=== PATIENT | male | born 1935 | race Caucasian/White ===

== ENCOUNTER → 2018-04-11 | Outpatient (CLI) | payer OTHER | LOC: FIMAGING 08:45 | PROVIDERS: ATTEND Orthopaedic Surgery | DX: R20.0 Anesthesia of skin (principal); M48.02 Spinal stenosis, cervical region; M48.03 Spinal stenosis, cervicothoracic region; M50.30 Other cervical disc degeneration, unspecified cervical region; M43.02 Spondylolysis, cervical region; Z95.0 Presence of cardiac pacemaker ==